=== PATIENT | male | born 1980 | race Hispanic/Latino ===

== ENCOUNTER 2018-07-05 13:41 | Inpatient (IN) | payer MEDICAID, OTHER, SELFPAY ==
[2018-07-05 13:41] VITALS: BMI 32.1
[2018-07-05 15:03] LABS: BASO # 0.03 K/mm3 (0.0-2.0); BASO % 0.3 % (0.0-3.0); EOS # 0.1 (0.0-0.7); EOS % 0.8 % (1.5-5.0); GRAN # 6.92 (1.4-6.5); GRAN % 64.2 % (50.0-68.0); HEMOGLOBIN 17.4 g/dL (14.0-18.0); LYMPH % 28.1 % (22.0-35.0); MEAN CORPUSCULAR HEMOGLOBIN 30.6 pg (25.0-35.0); MEAN CORPUSCULAR HGB CONC 35.2 g/dl (31.0-37.0); MEAN PLATELET VOLUME 10.6 fl (7.0-11.0); MONO # 0.7 (0.1-0.6); MONO % 6.6 % (1.0-6.0); RBC 5.68 10^6/uL (3.5-6.1); RED CELL DISTRIBUTION WIDTH 13.4 % (11.5-14.5); WHITE BLOOD COUNT 10.8 10^3/ul (4.5-11.0)
[2018-07-05 15:11] LABS: URINE BILIRUBIN NEGATIVE (NEGATIVE); URINE BLOOD NEGATIVE (NEGATIVE); URINE GLUCOSE (UA) NEGATIVE (NEGATIVE); URINE LEUKOCYTE ESTERASE SMALL Leu/uL (NEGATIVE); URINE PROTEIN TRACE mg/dL (<30 mg/dL); URINE UROBILINOGEN 0.2 E.U./dL (<1 E.U./dL)
[2018-07-05 15:13] LABS: URINE APPEARANCE SL CLOUDY (CLEAR); URINE COLOR YELLOW (YELLOW)
[2018-07-05 15:14] LABS: ALB/GLOB RATIO 1.7 (1.1-1.8); ALT/SGPT 23 U/L (7-56); AST/SGOT 22 U/L (17-59); BLOOD UREA NITROGEN 14 mg/dL (7-21); CALCIUM 9.3 mg/dL (8.4-10.5); GFR NON-AFRICAN AMERICAN > 60
[2018-07-05 15:15] LABS: ACETAMINOPHEN < 10.0 ug/ml (10.0-20.0); SALICYLATE < 1 mg/dL (2.0-20.0)
--- NOTE | 2018-07-05 15:22 | ED PDOC ---
Arrival/HPI - General Historian: Patient <Phoenix Garcia A - Last Filed: 07/05/18 17:54> <Cassandra Nassar - Last Filed: 07/08/18 02:21> - General Chief Complaint: Psychiatric Evaluation Time Seen by Provider: 07/05/18 14:10 - History of Present Illness Narrative History of Present Illness (Text): 07/05/18 14:59 37yo male with history of schizophrenia who was bib EMS for psychiatric evaluation. the by the bedside states she called because patient was Paranoid, acting out stating that is unfaithful to him and that they child is not his. stating he will kill her. Patient however admits that he thinks that the child is not his, but that he would not hurt his . He denies SI/HI , any somatic complaint. Admits that he stopped taking his medication. (Phoenix Garcia A) Past Medical History - Provider Review Nursing Documentation Reviewed: Yes - Infectious Disease Hx of Infectious Diseases: None - Tetanus Immunization Tetanus Immunization: Unknown - Cardiac Hx Cardiac Disorders: No - Psychiatric Hx Physical Abuse: No Hx Schizophrenia: Yes Hx Substance Use: No - Anesthesia Hx Anesthesia: No - Suicidal Assessment Feels Threatened In Home Enviroment: No <Phoenix Garcia A - Last Filed: 07/05/18 17:54> Family/Social History - Physician Review Nursing Documentation Reviewed: Yes Family/Social History: Unknown Family HX Smoking Status: Heavy Smoker > 10 Cigarettes Daily Hx Alcohol Use: Yes Hx Substance Use: No Hx Substance Use Treatment: No <Phoenix Garcia A - Last Filed: 07/05/18 17:54> Allergies/Home Meds <Phoenix Garcia A - Last Filed: 07/05/18 17:54> <Cassandra Nassar - Last Filed: 07/08/18 02:21> Allergies/Adverse Reactions: Allergies No Known Allergies Allergy (Verified 07/07/18 02:01) Home Medications: Home Meds Medication Instructions Recorded Confirmed Alprazolam [Xanax] 1 mg PO DAILY 04/20/14 07/07/18 Quetiapine Fumarate [Seroquel] 200 mg PO TID 04/20/14 07/07/18 Review of Systems - Physician Review All systems were reviewed & negative as marked: Yes - Review of Systems Constitutional: Normal Eyes: Normal ENT: Normal Respiratory: Normal Cardiovascular: Normal Gastrointestinal: Normal Genitourinary Male: Normal Musculoskeletal: Normal Skin: Normal Neurological: Normal Endocrine: Normal Hemo/Lymphatic: Normal Psychiatric: Other (Paranoid) <Phoenix Garcia A - Last Filed: 07/05/18 17:54> Physical Exam Vital Signs Reviewed: Yes Temperature: Afebrile Blood Pressure: Normal Pulse: Regular Respiratory Rate: Normal Appearance: Positive for: Well-Appearing, Non-Toxic, Comfortable Pain Distress: None Mental Status: Positive for: Alert and Oriented X 3 - Systems Exam Head: Present: Atraumatic, Normocephalic Pupils: Present: PERRL Extroacular Muscles: Present: EOMI Conjunctiva: Present: Normal Mouth: Present: Moist Mucous Membranes Neck: Present: Normal Range of Motion Respiratory/Chest: Present: Clear to Auscultation, Good Air Exchange. No: Respiratory Distress, Accessory Muscle Use Cardiovascular: Present: Regular Rate and Rhythm, Normal S1, S2. No: Murmurs Abdomen: No: Tenderness, Distention, Peritoneal Signs Back: Present: Normal Inspection Upper Extremity: Present: Normal Inspection. No: Cyanosis, Edema Lower Extremity: Present: Normal Inspection. No: Edema Neurological: Present: GCS=15, CN II-XII Intact, Speech Normal Skin: Present: Warm, Dry, Normal Color. No: Rashes Psychiatric: Present: Alert, Oriented x 3, Normal Insight, Normal Concentration <Phoenix Garcia A - Last Filed: 07/05/18 17:54> Vital Signs Temp Pulse Resp BP Pulse Ox 07/05/18 18:39 98.4 F 86 17 149/84 98 07/05/18 18:38 98.4 F 86 17 149/84 98 07/05/18 16:59 84 18 148/82 99 07/05/18 14:00 98.4 F 90 18 161/99 H 99 Medical Decision Making <Phoenix Garcia A - Last Filed: 07/05/18 17:54> <Cassandra Nassar - Last Filed: 07/08/18 02:21> ED Course and Treatment: 07/05/18 17:29 Pt was seen in ED for stated history. He was medically cleared for psych evaluation. he as seen by DANIELA Freitas and was admitted to Dr. Rimma for schizophrenia. EKG NSR @86bpm PT declined chest xray, Per technology officer. (Jose,Happiness A) - Lab Interpretations Microbiology Results: Microbiology Results 07/05/18 15:00 Urine,Clean Catch Urine Culture - Final No Growth (<1,000 CFU/ML) Lab Results: 07/05/18 13:48 07/05/18 13:48 Lab Results 07/05/18 13:50: Urine Color Yellow, Urine Appearance Sl cloudy, Urine pH 6.0, Ur Specific [place] >= 1.030, Urine Protein Trace H, Urine Glucose (UA) Negative , Urine Ketones Negative, Urine Blood Negative, Urine Nitrate Negative, Urine Bilirubin Negative, Urine Urobilinogen 0.2, Ur Leukocyte Esterase Small H, Urine RBC 0 - 2, Urine WBC 1 - 3, Ur Epithelial Cells 0 - 2, Urine Bacteria Few , Urine Other Mucus 07/05/18 13:48: Alcohol, Quantitative < 10 07/05/18 13:48: Salicylates < 1 L, Acetaminophen < 10.0 L 07/05/18 13:48: Sodium 140, Potassium 3.6, Chloride 104, Carbon Dioxide 23, Anion Gap 16, BUN 14, Creatinine 0.9, Est GFR ( Amer) > 60, Est GFR (Non- Af Amer) > 60, Random Glucose 105, Calcium 9.3, Magnesium 1.8, Total Bilirubin 0.7, AST 22, ALT 23, Alkaline Phosphatase 62, Total Protein 7.9, Albumin 5.0 H, Globulin 2.9, Albumin/Globulin Ratio 1.7 07/05/18 13:48: WBC 10.8, RBC 5.68, Hgb 17.4, Hct 49.4, MCV 87.0, MCH 30.6, MCHC 35.2, RDW 13.4, Plt Count 293, MPV 10.6, Gran % 64.2, Lymph % (Auto) 28.1, [place] % (Auto) 6.6 H, Eos % (Auto) 0.8 L, Baso % (Auto) 0.3, Gran # 6.92 H, Lymph # (Auto) 3.0, [place] # (Auto) 0.7 H, Eos # (Auto) 0.1, Baso # (Auto) 0.03 - Medication Orders Current Medication Orders: Acetaminophen (Tylenol 325mg Tab) 325 mg PO Q6H PRN PRN Reason: Pain, Mild (1-3) Al Hydrox/Mg Hydrox/Simethicone (Maalox Plus 30 Ml) 30 ml PO DAILY PRN PRN Reason: Dyspepsia Alprazolam (Xanax) 1 mg PO HS RAJIV PRN Reason: Protocol Stop: 07/13/18 22:01 Last Admin: 07/08/18 01:01 Dose: 1 mg Behavioural Document 07/08/18 01:01 EOO (Rec: 07/08/18 01:03 EOO [id number]) Maintenance Maintenance Dose Yes Nonmedicinal Nonmedicinal Interventions Therapeutic Communication Behavior Behavior for Medication: Anxiety Diphenhydramine HCl (Benadryl) 50 mg IM Q6H PRN PRN Reason: Agitation Haloperidol (Haldol) 5 mg PO Q6 PRN; Protocol PRN Reason: Psychosis Haloperidol Lactate (Haldol) 5 mg IM Q6H PRN; Protocol PRN Reason: Agitation Lorazepam (Ativan) 2 mg IM Q6 PRN; Protocol PRN Reason: Agitation Magnesium Hydroxide (Milk Of Magnesia) 30 ml PO DAILY PRN PRN Reason: Constipation Quetiapine Fumarate (Seroquel) 100 mg PO HS [facility] Last Admin: 07/07/18 21:58 Dose: Not Given Non-Admin Reason: Patient Refused Quetiapine Fumarate (Seroquel) 50 mg PO BID RAJIV PRN Reason: Protocol Last Admin: 07/07/18 17:06 Dose: Not Given Non-Admin Reason: Patient Refused Behavioural Document 07/07/18 17:06 DC (Rec: 07/07/18 17:06 DC [id number]) Maintenance Maintenance Dose Yes - PA / TRUCK SERVICE MANAGER / Resident Statement / has reviewed & agrees with the documentation as recorded. <Cassandra Nassar - Last Filed: 07/08/18 02:21> Disposition/Present on Arrival - Present on Arrival Any Indicators Present on Arrival: No History of DVT/PE: No History of Uncontrolled Diabetes: No Urinary Catheter: No History of Decub. Ulcer: No History Surgical Site Infection Following: None - Disposition Have Diagnosis and Disposition been Completed?: Yes Disposition Time: 17:25 Patient Plan: Admission <Phoenix Garcia - Last Filed: 07/05/18 17:54> <Cassandra Nassar - Last Filed: 07/08/18 02:21> - Disposition Diagnosis: Schizophrenia Disposition: HOSPITALIZED Patient Problems: Current Active Problems Problem Status Onset Schizophrenia Acute Condition: STABLE
[2018-07-05 15:47] LABS: URINE BACTERIA FEW (NEG); URINE EPITHELIAL CELLS 0 - 2 /hpf (0-5); URINE RBC 0 - 2 /hpf (0-2)
[2018-07-05 18:07] LABS: BARBITURATES, UR NEGATIVE (NEGATIVE); BENZODIAZEPINES, UR NEGATIVE (NEGATIVE); OPIATES, UR NEGATIVE (NEGATIVE); PHENCYCLIDINE, UR NEGATIVE (NEGATIVE)
[2018-07-05 18:39] VITALS: O2SAT 98
[2018-07-05] MEDS ORDERED: Alum-Mag Hydrox-Simethicone Susp (30 mL) PO PRN (20:54)
[2018-07-05] MEDS ORDERED: Magnesium Hydroxide Susp 30 ml UD PO PRN (20:54)
--- NOTE | 2018-07-06 03:31 | PCM.BM ---
<Olivier Dunn - Last Filed: 07/06/18 03:28> Treatment Plan Problems - Problems identified on initial assessmt Non compliance with medication Date Initiated: 07/05/18 Time Initiated: 21:45 Assessment reference: NA Status: Active Altered thought process Date Initiated: 07/05/18 Time Initiated: 22:00 Assessment reference: NA Status: Active Treatment assets and liabiliti Patient Assests: ADL independent, good support system, good past tx response Patient Liabilities: relationship conflicts - Milieu Protocol Maintain good personal hygiene: daily Encourage regular showers, daily Remind patient to perform daily oral care, daily Assist patient to perform ADL's Maintain personal safety: daily Educate patient to report safety concerns to staff, daily Monitor environment for contraband/sharps Medication safety: Monitor for expected outcome, potential side effects: daily, Assess barriers to learning: daily, Assess readiness for medication education: daily Family Contact Family involvement: Family/SO is involved - Goals for Treatment Patient goals for treatment: To get better and go home Discharge/Continuing Care - Education Needs Education Needs: Patient Medication, Patient Diagnosis/Disease Process, Patient Coping Skills, Patient Anger Management skills, Patient Aftercare Safety Plan - Discharge Discharge Criteria: Free of Suicidal thoughts, Free of Homicidal thoughts <Ancelmo Martinez - Last Filed: 07/06/18 09:58> - Diagnosis (1) Schizophrenia Status: Acute Interventions: Seroquel 50 mg po bid, 100 mg HS for paranoia and mood control. Encourage compliance on the unit however if he continues to completely refuse necessary treatment, [facility] screener will be contacted for involuntary commitment. 07/06/18 09:58 <Mary Núñez - Last Filed: 07/07/18 13:45>
[2018-07-06 07:12] VITALS: BP 123/76; PULSE 57; RESP 20; TEMP 97.7
--- NOTE | 2018-07-06 09:58 | PCM.PSYCH ---
Initial Psychiatric Evaluation - Initial Psychiatric Evaluation Type of Admission: Voluntary Legal Status: Capacity History of Present Illness and Precipitating Events: Patient is a [place] 37 yo male with history of schizophrenia, unclear number of prior admissions (there were no psychiatric admissions documented in [facility]), prior hx of attending [facility] [place], +noncompliance with medications who was BIBA after his called EMS because patient has been increasingly psychotic over the past week. PES clinician obtained collateral from patient's , Rosalind Perez. Mrs. Perez confirmed that patient has been paranoid and bizarre for a few days. Patient is delusional and believes that his is having an affair and that his ten year son is not his biological child. On day of presentation to the ER patient threatened to kill his stating to her "I should kill you". Patient has been uncooperative and difficult in the ER and on the unit. Patient does not really want to engage with treatment. He was dismissive and rude to the PES clinician and uncooperative with nursing requests last night. Patient also declared that he would not take medications on the unit. Patient was minimally cooperative with me at bedside this morning. He provided very basic information about his social history and was unwilling to discuss his psychiatric history. He is unhappy and paranoid. He denies depression, SI/ HI or AVH however I question his credibility. He also indicates that he wants to be discharged. I educated him about the process of submitting a 48 hour notice. PSYCHIATRIC HISTORY ~Unclear inpatient psych history, patient is not forthcoming ~Pt has a hx of being linked to [facility]'s outpatient program. Patient's indicated that patient hasn't been attending groups or taking his medication (Seroquel 100/200). SOCIAL HISTORY Born and raised in [place]. Patient resides with his Rosalind Perez and 10 yo son. He works in construction. Patient denies any alcohol or drug use. Current Medications: Active Medications Generic Name Dose Route Start Last Admin Trade Name Freq PRN Reason Stop Dose Admin Acetaminophen 325 mg 07/05/18 20:54 Tylenol 325mg Tab PO Q6H PRN Pain, Mild (1-3) Al Hydrox/Mg Hydrox/Simethicone 30 ml 07/05/18 20:54 Maalox Plus 30 Ml PO DAILY PRN Dyspepsia Alprazolam 1 mg 07/06/18 22:00 Xanax PO 07/13/18 22:01 HS [facility] Protocol Haloperidol 5 mg 07/05/18 20:57 Haldol PO Q6 PRN Psychosis Protocol Magnesium Hydroxide 30 ml 07/05/18 20:54 Milk Of Magnesia PO DAILY PRN Constipation Quetiapine Fumarate 100 mg 07/05/18 22:00 07/05/18 22:12 Seroquel PO Not Given HS RAJIV Quetiapine Fumarate 50 mg 07/06/18 08:00 Seroquel PO BID RAJIV Protocol Past Psychiatric History - Past Psychiatric History Pertinent Medical Hx (Current Medical&Sleep Prob, Allergies): Allergies Allergy/AdvReac Type Severity Reaction Status Date / Time No Known Allergies Allergy Verified 04/20/14 17:30 Alprazolam [Xanax] 1 mg PO DAILY 04/20/14 Quetiapine Fumarate [Seroquel] 200 mg PO TID 04/20/14 Mental Status Examination - Personal Presentation Personal Presentation: Looks stated age - Affect Affect: Constricted, Blunted - Motor Activity Motor Activity: Calm - Reliability in Providing Information Reliability in Providing Information: Fair - Speech Speech: Disorganized (reticent and preoccupied) - Mood Mood: Other (irritable and unhappy) - Formal Thought Process Formal Thought Process: Delusions, Paranoia - Cognitive Functions Orientation: Person, Place, Situation Sensorium: Alert Estimate of Intelligence: Average Judgement: Imparied, as evidence by: Poor judgement, Imparied, as evidence by: Lack of insight into illness DSM 5 DX - DSM 5 DSM 5 Diagnosis: Schizophrenia by history - Recommended/Plan of Treatment Treatment Recommendations and Plan of Treatment: * group, milieu and supportive tx * Seroquel 50 mg po bid, 100 mg HS for paranoia and mood control. Encourage compliance on the unit however if he continues to completely refuse necessary treatment, [facility] screener will be contacted for involuntary commitment. * Vitals reviewed and noted below: 07/06/18 07:12 Temperature 97.7 F Pulse Rate 57 L Respiratory 20 Rate Blood Pressure 123/76 * Admission labs noted below: Laboratory Tests 07/05/18 07/05/18 07/05/18 13:48 13:48 13:48 WBC 10.8 RBC 5.68 Hgb 17.4 Hct 49.4 MCV 87.0 MCH 30.6 MCHC 35.2 RDW 13.4 Plt Count 293 MPV 10.6 Gran % 64.2 Lymph % (Auto) 28.1 [place] % (Auto) 6.6 H Eos % (Auto) 0.8 L Baso % (Auto) 0.3 Gran # 6.92 H Lymph # (Auto) 3.0 [place] # (Auto) 0.7 H Eos # (Auto) 0.1 Baso # (Auto) 0.03 Sodium 140 Potassium 3.6 Chloride 104 Carbon Dioxide 23 Anion Gap 16 BUN 14 Creatinine 0.9 Est GFR ( Amer) > 60 Est GFR (Non-Af Amer) > 60 Random Glucose 105 Calcium 9.3 Magnesium 1.8 Total Bilirubin 0.7 AST 22 ALT 23 Alkaline Phosphatase 62 Total Protein 7.9 Albumin 5.0 H Globulin 2.9 Albumin/Globulin Ratio 1.7 Urine Color Urine Appearance Urine pH Ur Specific [place] Urine Protein Urine Glucose (UA) Urine Ketones Urine Blood Urine Nitrate Urine Bilirubin Urine Urobilinogen Ur Leukocyte Esterase Urine RBC Urine WBC Ur Epithelial Cells Urine Bacteria Urine Other Salicylates < 1 L Urine Opiates Screen Urine Methadone Screen Acetaminophen < 10.0 L Ur Barbiturates Screen Ur Phencyclidine Scrn Ur Amphetamines Screen U Benzodiazepines Scrn U Oth Cocaine Metabols U Cannabinoids Screen Alcohol, Quantitative 07/05/18 07/05/18 07/05/18 13:48 13:50 17:30 WBC RBC Hgb Hct MCV MCH MCHC RDW Plt Count MPV Gran % Lymph % (Auto) [place] % (Auto) Eos % (Auto) Baso % (Auto) Gran # Lymph # (Auto) [place] # (Auto) Eos # (Auto) Baso # (Auto) Sodium Potassium Chloride Carbon Dioxide Anion Gap BUN Creatinine Est GFR ( Amer) Est GFR (Non-Af Amer) Random Glucose Calcium Magnesium Total Bilirubin AST ALT Alkaline Phosphatase Total Protein Albumin Globulin Albumin/Globulin Ratio Urine Color Yellow Urine Appearance Sl cloudy Urine pH 6.0 Ur Specific [place] >= 1.030 Urine Protein Trace H Urine Glucose (UA) Negative Urine Ketones Negative Urine Blood Negative Urine Nitrate Negative Urine Bilirubin Negative Urine Urobilinogen 0.2 Ur Leukocyte Esterase Small H Urine RBC 0 - 2 Urine WBC 1 - 3 Ur Epithelial Cells 0 - 2 Urine Bacteria Few Urine Other Mucus Salicylates Urine Opiates Screen Negative Urine Methadone Screen Negative Acetaminophen Ur Barbiturates Screen Negative Ur Phencyclidine Scrn Negative Ur Amphetamines Screen Negative U Benzodiazepines Scrn Negative U Oth Cocaine Metabols Negative U Cannabinoids Screen Negative Alcohol, Quantitative < 10
--- NOTE | 2018-07-06 09:59 | RAD ---
Date of service: 07/05/2018 HISTORY: admission COMPARISON: 04/20/2014 FINDINGS: LUNGS: No active pulmonary disease. PLEURA: No significant pleural effusion identified, no pneumothorax apparent. CARDIOVASCULAR: Normal. OSSEOUS STRUCTURES: No significant abnormalities. VISUALIZED UPPER ABDOMEN: Normal. OTHER FINDINGS: None. IMPRESSION: No active disease.
--- NOTE | 2018-07-06 12:14 | CARD ---
APPROVED REPORT Date of service: 07/05/2018 EKG Measurement Heart [id number] <Conclusion> Normal sinus rhythm Nonspecific ST abnormality Abnormal ECG
[2018-07-07] MEDS ORDERED: DiphenhydrAMINE 50 mg/ml Inj IM PRN (10:51)
--- NOTE | 2018-07-07 14:40 | PCM.PYCHPN ---
Psychiatric Progress Note - Psychiatric Progress Note Patient seen today, length of contact: 30 minutes Patient Chief Complaint: "I don't need treatment" Problems Identified/Issues Discussed: this insurance underwriter educated patient about suicide/ homicide prevention, past psychiatric h/o, current psychiatric symptoms, medical problems, risk/benefits and alternatives of medications, medications compliance, coping strategies, substance abuse h/o, relapse prevention, importance of follow up with psychiatrist and therapist, discharge plan, but patient was not receptive. Medical Problems: patient reported being healthy Diagnostic Results: 07/05/18 13:48 07/05/18 13:48 Lab Results 07/05/18 17:30: Urine Opiates Screen Negative, Urine Methadone Screen Negative, Ur Barbiturates Screen Negative, Ur Phencyclidine Scrn Negative, Ur Amphetamines Screen Negative, U Benzodiazepines Scrn Negative, U Oth Cocaine Metabols Negative, U Cannabinoids Screen Negative 07/05/18 13:50: Urine Color Yellow, Urine Appearance Sl cloudy, Urine pH 6.0, Ur Specific [place] >= 1.030, Urine Protein Trace H, Urine Glucose (UA) Negative , Urine Ketones Negative, Urine Blood Negative, Urine Nitrate Negative, Urine Bilirubin Negative, Urine Urobilinogen 0.2, Ur Leukocyte Esterase Small H, Urine RBC 0 - 2, Urine WBC 1 - 3, Ur Epithelial Cells 0 - 2, Urine Bacteria Few , Urine Other Mucus 07/05/18 13:48: Alcohol, Quantitative < 10 07/05/18 13:48: Salicylates < 1 L, Acetaminophen < 10.0 L 07/05/18 13:48: Sodium 140, Potassium 3.6, Chloride 104, Carbon Dioxide 23, Anion Gap 16, BUN 14, Creatinine 0.9, Est GFR ( Amer) > 60, Est GFR (Non- Af Amer) > 60, Random Glucose 105, Calcium 9.3, Magnesium 1.8, Total Bilirubin 0.7, AST 22, ALT 23, Alkaline Phosphatase 62, Total Protein 7.9, Albumin 5.0 H, Globulin 2.9, Albumin/Globulin Ratio 1.7 07/05/18 13:48: WBC 10.8, RBC 5.68, Hgb 17.4, Hct 49.4, MCV 87.0, MCH 30.6, MCHC 35.2, RDW 13.4, Plt Count 293, MPV 10.6, Gran % 64.2, Lymph % (Auto) 28.1, [place] % (Auto) 6.6 H, Eos % (Auto) 0.8 L, Baso % (Auto) 0.3, Gran # 6.92 H, Lymph # (Auto) 3.0, [place] # (Auto) 0.7 H, Eos # (Auto) 0.1, Baso # (Auto) 0.03 Vital Signs Temp Pulse Resp BP Pulse Ox 07/06/18 07:12 97.7 F 57 L 20 123/76 07/05/18 22:21 16 07/05/18 18:39 98.4 F 86 17 149/84 98 07/05/18 18:38 98.4 F 86 17 149/84 98 07/05/18 16:59 84 18 148/82 99 07/05/18 14:00 98.4 F 90 18 161/99 H 99 DSM 5 Symptoms Update: shortly, as per Dr. Seals's assessment: Patient is a [place] 37 yo male with history of schizophrenia, unclear number of prior admissions (there were no psychiatric admissions documented in [facility]), prior hx of attending [facility] outpatient program, +noncompliance with medications who was BIBA after his called EMS because patient has been increasingly psychotic over the past week. PES clinician obtained collateral from patient's , Rosalind Perez. Mrs. Perez confirmed that patient has been paranoid and bizarre for a few days. Patient is delusional and believes that his is having an affair and that his ten year son is not his biological child. On day of presentation to the ER patient threatened to kill his stating to her "I should kill you". Patient has been uncooperative and difficult in the ER and on the unit. Patient does not really want to engage with treatment. He was dismissive and rude to the PES clinician and uncooperative with nursing requests last night. Patient also declared that he would not take medications on the unit. patient was seen at the treatment team meeting, patient presented with negative symptoms of schizophrenia, flat and angry affect, was refusing to participate in interview, patient said "I don't need to have any treatment". Patient was screened by [facility], at present moment patient is waiting for bed to be available, patient was accepted for screening. As per staff patient is unpredictable, angry, mood, impulses are unpredictable. This insurance underwriter tried to educate patient about medications but patient said that he will not take any of the medications. PRN meds started IM Haldol+benadryl+ativan. pt reported being healthy. impression: Rule out paranoid schizophrenia Medication Change: No (medications started, PRN medications) Medical Record Reviewed: No Consults ordered or reviewed: patient was seen by medical team in the emergency room. Mental Status Examination - Cognitive Function Orientation: Person, Place, Situation Memory: Intact Attention: Poor Concentration: Poor Association: Loose Fund of Knowledge: Poor - Mood Mood: Depressed, Other (irritable and unhappy) - Affect Affect: Constricted, Blunted - Formal Thought Process Formal Thought Process: Delusions, Paranoia - Suicidal Ideation Suicidal Ideation: No - Homicidal Ideation Homicidal Ideation: No Goal/Treatment Plan - Goal/Treatment Plan Need for Continued Stay: Remain at risks for inpatient hospitalization, Severe depression anxiety, Discharge may exacerbated symptoms, Severe functional impairment Progress Toward Problem(s) and Goals/Treatment Plan: Milieu/structure/supportive therapy Medical consult appreciated, see medical team note for more detailed info SW consultation for discharge plan and social issues Med management patient was started on Seroquel by Dr. Martinez but patient was noncompliant with the medications As needed medication Haldol plus Benadryl plus Ativan Family involvement Follow up on labs Will monitor closely Pt was educated about risk/benefits and alternatives of medications, coping strategies (safety plan, suicide prevention), relapse prevention, importance of follow up with psychiatrist and therapist, stay away from drugs/alcohol/smoking patient was screened by [facility], at present moment patient is awaiting for bed to be available. Estimated Date of D/C: 07/11/18
--- NOTE | 2018-07-08 08:50 | PCM.PYCHDC ---
Mental Status Examination - Mental Status Examination Orientation: Person, Place, Situation Memory: Intact Mood: Depressed, Anxious Affect: Constricted Attention: Poor Concentration: Poor Association: Loose Fund of Knowledge: WNL Formal Thought Process: Hallucinations, Delusions, Paranoia, Loosening of associations Description of patient's judgement and insight: poor insight and judgment Psychotic Thoughts and Behaviors: pt is still disorganized, paranoid, guarded Suicidal Ideation: No Current Homicidal Ideation?: No Plan: but cannot be excluded Discharge Summary - Discharge Note Reason for Hospitalization: paranoia, disorganized thoughts and behavior Psychiatric History (includes Medical, Family, Personal Hx): h/o psychosis, r/o schizophrenia Laboratory Data: 07/05/18 13:48 07/05/18 13:48 Lab Results 07/05/18 17:30: Urine Opiates Screen Negative, Urine Methadone Screen Negative, Ur Barbiturates Screen Negative, Ur Phencyclidine Scrn Negative, Ur Amphetamines Screen Negative, U Benzodiazepines Scrn Negative, U Oth Cocaine Metabols Negative, U Cannabinoids Screen Negative 07/05/18 13:50: Urine Color Yellow, Urine Appearance Sl cloudy, Urine pH 6.0, Ur Specific Vickery >= 1.030, Urine Protein Trace H, Urine Glucose (UA) Negative , Urine Ketones Negative, Urine Blood Negative, Urine Nitrate Negative, Urine Bilirubin Negative, Urine Urobilinogen 0.2, Ur Leukocyte Esterase Small H, Urine RBC 0 - 2, Urine WBC 1 - 3, Ur Epithelial Cells 0 - 2, Urine Bacteria Few , Urine Other Mucus 07/05/18 13:48: Alcohol, Quantitative < 10 07/05/18 13:48: Salicylates < 1 L, Acetaminophen < 10.0 L 07/05/18 13:48: Sodium 140, Potassium 3.6, Chloride 104, Carbon Dioxide 23, Anion Gap 16, BUN 14, Creatinine 0.9, Est GFR ( Amer) > 60, Est GFR (Non- Af Amer) > 60, Random Glucose 105, Calcium 9.3, Magnesium 1.8, Total Bilirubin 0.7, AST 22, ALT 23, Alkaline Phosphatase 62, Total Protein 7.9, Albumin 5.0 H, Globulin 2.9, Albumin/Globulin Ratio 1.7 07/05/18 13:48: WBC 10.8, RBC 5.68, Hgb 17.4, Hct 49.4, MCV 87.0, MCH 30.6, MCHC 35.2, RDW 13.4, Plt Count 293, MPV 10.6, Gran % 64.2, Lymph % (Auto) 28.1, [place] % (Auto) 6.6 H, Eos % (Auto) 0.8 L, Baso % (Auto) 0.3, Gran # 6.92 H, Lymph # (Auto) 3.0, [place] # (Auto) 0.7 H, Eos # (Auto) 0.1, Baso # (Auto) 0.03 Vital Signs Temp Pulse Resp BP Pulse Ox 07/06/18 07:12 97.7 F 57 L 20 123/76 07/05/18 22:21 16 07/05/18 18:39 98.4 F 86 17 149/84 98 07/05/18 18:38 98.4 F 86 17 149/84 98 07/05/18 16:59 84 18 148/82 99 07/05/18 14:00 98.4 F 90 18 161/99 H 99 Consultations:: List each consultation separately and include: 1. Reason for request. 2. Findings. 3. Follow-up Consultations: patient was seen by medical team in the emergency room. Summary of Hospital Course include:: 1. Description of specific treatment plan utilized for patients during their course of treatmen. 2. Summarize the time- course for resolution of acute symptoms and/or regressed behaviors. 3. Describe issues identified and worked on during hospitalization. 4. Describe medication utilized. 5. Describe medical problems identified and treated. 6. Reassessment of suicide risk Summary of Hospital Course: Patient is a [place] 37 yo male with history of schizophrenia, unclear number of prior admissions (there were no psychiatric admissions documented in [facility]), prior hx of attending [facility] outpatient program, +noncompliance with medications who was BIBA after his called EMS because patient has been increasingly psychotic over the past week. PES clinician obtained collateral from patient's , Rosalind Perez. Mrs. Perez confirmed that patient has been paranoid and bizarre for a few days. Patient is delusional and believes that his is having an affair and that his ten year son is not his biological child. On day of presentation to the ER patient threatened to kill his stating to her "I should kill you". Patient has been uncooperative and difficult in the ER and on the unit. Patient does not really want to engage with treatment. He was dismissive and rude to the PES clinician and uncooperative with nursing requests last night. Patient also declared that he would not take medications on the unit. Patient was minimally cooperative submitted 48hr notice, pt was screened, was accepted to [facility] for involuntary commitment. Pt was unhappy and paranoid. pt was refusing to take medications, saying that " I don't need any treatment". PSYCHIATRIC HISTORY ~Unclear inpatient psych history, patient is not forthcoming ~Pt has a hx of being linked to [facility]'s outpatient program. Patient's indicated that patient hasn't been attending groups or taking his medication (Seroquel 100/200). SOCIAL HISTORY Born and raised in [place]. Patient resides with his Rosalind Perez and 10 yo son. He works in construction. Patient denies any alcohol or drug use. [facility] has bed available for the patient pt was transfer over night uneventfully as per staff pt got Xanax po prior to transfer pt did not allow to notify his about the transfer pt requires further evaluation and stabilization, meds adjustment - Diagnosis (1) Psychosis Status: Acute Priority: High - Final Diagnosis (DSM 5) Condition upon Discharge: STABLE Disposition: OTHER INSTITUTION Follow-up Treatment Plan: patient was screened by [facility], pt was transferred over night uneventfully - Smoking Cessation Smoking Cessation Medication prescribed: No Reason for not providing: denies smoking - Antipsychotic Medications Pt discharged on 2 or more routine antipsychotic medications: No
== END 2018-07-08 02:20 | DRG 430 ==
LOC: ED 13:41 → ERH 17:20 → PSYC 18:47
PROVIDERS: ADMIT Psychiatry & Neurology Psychiatry; ATTEND Psychiatry & Neurology Psychiatry
DX: F20.9 Schizophrenia, unspecified (principal); Z91.14 Patient's other noncompliance with medication regimen